=== PATIENT | female | born 1985 | race Caucasian/White ===

== ENCOUNTER 2021-04-16 18:45 | Emergency (ER) | payer MEDICAID ==
[~2021-04-16] VITALS: Ht 167.6 cm; Wt 99.8 kg
--- NOTE | 2021-04-16 19:37 | NUR ---
CALLED PATIENT BACK FOR TRIAGE AND IN RESTROOM.
[2021-04-16 19:45] VITALS: BP 127/70
--- NOTE | 2021-04-16 20:22 | NUR ---
PT TAKEN TO BED 8
--- NOTE | 2021-04-16 20:30 | NUR ---
35 YO F BIB SELF WITH C/C OF 10/10 PRESSURE-LIKE MID-BACK PAIN X1 DAY. PT STATED THIS HAS HAPPENED IN THE PAST AND WENT AWAY ON ITS ON. PT STATED PAIN WORSENS WITH MOVEMENT AND NOTHING MAKES IT BETTER. PAIN IS NON-RADIATING. PT DENIES TAKING MEDICATION FOR PAIN . PT PLACED IN GOWN. BED LOCKED IN LOWEST POSITION, SIDE RAILS X1. DENIES HX AND RX NKA LAST MENST: 04/05
--- NOTE | 2021-04-16 20:58 | NUR ---
Dr. Rogers examining patient.
[2021-04-16] MEDS ORDERED: LIDOCAINE MPF 1% 10 MG/ML VIAL INJ ONE (21:05)
[2021-04-16] MEDS ORDERED: IBUPROFEN 400 MG TAB PO ONE (21:05)
--- NOTE | 2021-04-16 21:30 | NUR ---
PT IS SITTING UP IN BED. ALL NEEDS MET AT THIS TIME. BED LOCKED IN LOWEST POSITION, SIDE RAILS X1.
--- NOTE | 2021-04-16 21:46 | NUR ---
ZOIE INGRAM AT BEDSIDE PERFORMING LIDOCAIN INJ.
--- NOTE | 2021-04-16 22:04 | NUR ---
PT IS SITTING UP IN BED. PT STATES SHE FEEL MORE RELIEF AND IS ABLE TO MOVE MORE. STATES THERE IS PAIN, BUT NOT MUCH 4/10. ALL NEEDS MET AT THIS TIME. BED LOCKED IN LOWEST POSITION, SIDE RAILS X1.
[2021-04-16] MEDS ORDERED: NAPR-54 PO (22:08)
[2021-04-16 22:24] VITALS: BP 127/70
== END 2021-04-16 22:24 | disposition home or self-care (01) ==
LOC: MED 18:45
DX: M62.830 Muscle spasm of back (principal); Z79.899 Other long term (current) drug therapy
CPT/HCPCS: 99282; J2001